=== PATIENT | female | born 1945 | race Caucasian/White ===

== ENCOUNTER → 2017-07-10 | Outpatient (CLI) | payer MEDICARE, OTHER ==
--- NOTE | 2017-07-10 12:08 | XR ---
EXAMINATION TYPE: XR lumbar spine 2 or 3V DATE OF EXAM: 07/10/2017 CLINICAL HISTORY: Low back pain TECHNIQUE: Frontal and lateral images of the lumbar spine are obtained. COMPARISON: Lumbar spine x-ray April 21, 2014 FINDINGS: Osseous structures are demineralized which is noted lower radiographic sensitivity There a re 5 lumbar type vertebral bodies identified. The lumbar spine shows straightened alignment without evidence of acute fracture or dislocation. Vertebral body heights are within normal limits. There is mild to moderate multilevel disc space narrowing with relative sparing of L3-L4 and L4-L5 levels. Pro minent multilevel facet arthropathy is redemonstrated in the mid to lower lumbar spine. There is mild multilevel anterior spurring with more moderate anterior spurring L5-S1 level. Vascular calcificatio n overlying abdominal aorta is redemonstrated. IMPRESSION: Demineralization and multilevel degenerative changes are seen as detailed above. Overall no significant change from prior.
== END | disposition home or self-care (01) ==
LOC: RADXRMAIN 11:48
PROVIDERS: ATTEND Internal Medicine Geriatric Medicine
DX: M48.061 Spinal stenosis, lumbar region without neurogenic claudication (principal); M46.86 Other specified inflammatory spondylopathies, lumbar region; M81.0 Age-related osteoporosis without current pathological fracture; M46.06 Spinal enthesopathy, lumbar region
CPT/HCPCS: 72100

== ENCOUNTER → 2017-08-20 | Outpatient (CLI) | payer MEDICARE ==
[2017-08-20 11:31] LABS: Blood Urea Nitrogen 18 mg/dL (7-17)
--- NOTE | 2017-08-20 12:30 | MR ---
EXAMINATION TYPE: MR lumbar spine wo/w con DATE OF EXAM: 08/20/2017 COMPARISON: Lumbar spine x-ray July 10, 2017 HISTORY: Polyneuropathy per order. Numbness in right -sided legs and knees per patient. TECHNIQUE: Multiplanar, multisequence images of the lumbar spine is performed without and with IV contrast, util izing 10 mL intravenous Gadavist FINDINGS: Sagittal images of the lumbar spine show vertebral body heights to remain satisfactory. The re is grade 1 retrolisthesis of L5 on S1. There is multilevel disc desiccation seen. There is moderat e to advanced disc space narrowing with vacuum disc phenomenon L5-S1 level. There is additional mild disc space narrowing L2-L3 level. Posterior disc herniations are seen at these levels on sagittal maribell ges. Increased signal posteriorly consistent with annular tear is noted L5-S1 level. The conus medull shahriar is noted slightly lower in position ending at superior L2 level. No abnormal signal is seen. No suspicious clumping of lumbosacral nerve roots is noted. Few enhancing roots are seen, nonspecific f inding. The bone marrow signal intensity is overall heterogeneous with diffuse small scattered valerie iomas. No suspicious enhancement is present. Axial images show the T12-L1 and L1-L2 levels to appear within normal limits. Axial images at L2-L3 level show mild broad disc bulge mildly effacing anterior thecal sac, bilateral neural foramina are patent. Axial images at L3-L4 level show mild to moderate facet degenerative changes and ligamentum flavum hy pertrophy and mild broad disc bulge with right lateral disc protrusion component. There is mild left and mild to moderate right-sided anterior inferior neural foraminal narrowing seen at this level. The re is mild effacement of the anterior thecal sac. Axial images at L4-L5 level show mild to moderate facet degenerative changes and ligament flavum hype rtrophy bilaterally with some effacement the posterior lateral thecal sac. There is mild broad disc b ulge seen. Bilateral neural foramina remain patent. Axial images at L5-S1 level show mild facet degenerative changes bilaterally. There is right paracent ral disc protrusion identified but spinal canal is preserved as there is prominence of epidural fat a t this level. There is mild to moderate bilateral neural foraminal narrowing at this level identified . No suspicious retroperitoneal findings are seen. There is 7 mm simple appearing cyst centrally in lef t kidney on axial image 23 noted. There is larger 1.0 cm simple appearing cyst posteriorly upper pole level right kidney identified axial image 27. IMPRESSION: Grade 1 retrolisthesis of L5 on S1. Multilevel degenerative changes seen mid to lower lum bar spine as detailed above. No suspicious enhancement noted.
== END | disposition home or self-care (01) ==
LOC: RADMRIMAIN 10:47
PROVIDERS: ATTEND Internal Medicine Geriatric Medicine
DX: M47.816 Spondylosis without myelopathy or radiculopathy, lumbar region (principal); M43.17 Spondylolisthesis, lumbosacral region; Z01.812 Encounter for preprocedural laboratory examination
CPT/HCPCS: 82565; 84520; 72158; 36415; A9581

== ENCOUNTER → 2020-02-04 | Outpatient (CLI) | payer MEDICARE ==
[~2020-02-04] MED LIST: IODINE/POTASS IOD (LUGOLS) BOTTLE TOPICAL ONE
--- NOTE | 2020-02-05 14:47 | NM ---
EXAMINATION TYPE: NM DatScan Brain SPECT DATE OF EXAM: 02/04/2020 COMPARISON: NONE HISTORY: Tremors TECHNIQUE: 10 drops of Lugol's solution was administered 1 hour prior to injection as a thyroid bloc kaitlin agent. After the administration of 4.37 mCi I-123 Ioflupane DaTscan. Images obtained 3.5 hours post injection. SPECT images of the brain were acquired with axial and coronal reconstructions. FINDINGS: There is normal uptake within the striata bilaterally. Uptake is symmetric. IMPRESSION: Normal ALONSO scan
== END | disposition home or self-care (01) ==
LOC: RADNMMAIN 11:06
PROVIDERS: ATTEND Psychiatry & Neurology Neurology
DX: G25.0 Essential tremor (principal)
CPT/HCPCS: 78803; A9584

== ENCOUNTER → 2021-07-03 | Outpatient (CLI) | payer MEDICARE ==
--- NOTE | 2021-07-03 15:59 | BD ---
EXAMINATION TYPE: Axial Bone Density DATE OF EXAM: 07/03/2021 COMPARISON: NONE CLINICAL HISTORY: Height: 5 FT 6 1/2 IN Weight: 141 FRAX RISK QUESTIONS: Alcohol (3 or more units per day): NO Family History (Parent hip fracture): NO Glucocorticoids (More than 3mos): NO (Ex: prednisone, prednisolone, methylprednisolone, dexamethasone, and hydrocortisone). History of Fracture in Adulthood: NO Secondary Osteoporosis: 1. Type 1 Diabetes: NO 2. Hyperthyroidism: NO 3. Menopause before 45: NO 4. Malnutrition: NO 5. Chronic liver disease: NO Rheumatoid Arthritis: NO Current Tobacco Use: NO RISK FACTORS HISTORY OF: Surgery to Spine/Hip(right/left)/Wrist (right/left): NO Family History of Osteoporosis: NO Active: YES Diet low in dairy products/other sources of calcium: NO Postmenopausal woman: YES Take estrogen and/or progesterone medications: NO Lost more than 2 inches in height since high school: NO Frequent falls: NO Poor Health: GOOD Hyperparathyroidism: NO Adrenal Insufficiency: NO MEDICATIONS: Additional Medications: METOPROLOL, CHOLESTEROL MEDS, GERD MEDS, MAGNESIUM, XANAX, BACLOFEN, ASPIRIN Additional History: EXAM MEASUREMENTS: Bone mineral densitometry was performed using the [employer] System. Bone mineral density as measured about the Lumbar spine is: ----- L1-L4(G/cm2): 1.539 T Score Values are as follows: ----- L2: 2.7 ----- L3: 3.8 ----- L4: 4.4 ----- L1-L4: 3.0 Bone mineral density has: INCREASED 4.3 % since study of: 2016 Bone mineral density about the R hip (g/cm2): 0.909 Bone mineral density about the L hip (g/cm2): 0.886 T Score values are as follows: -----R Neck: -0.9 -----L Neck: -1.1 -----R Total: -0.8 -----L Total: -0.7 Bone mineral density has: DECREASED -12.6 % since study of: 2016 IMPRESSION: Osteopenia (T Score between -2.5 and -1). There is slightly increased risk of fracture and the patient may be considered for treatment. Re-Screen 2-5 years. NOTE: T-SCORE=SD OF THE YOUNG ADULT MEAN.
--- NOTE | 2021-07-05 12:05 | MM ---
Reason for exam: screening (asymptomatic). Last mammogram was performed 5 years and 4 months ago. History: Patient is postmenopausal and is nulliparous. Physical Findings: A clinical breast exam by your physician is recommended on an annual basis and results should be correlated with mammographic findings. MG 3D Screening Mammo W/Cad Bilateral CC and MLO view(s) were taken. Prior study comparison: February 17, 2016, bilateral MG 3d screening mammo w/cad. April 08, 2013, bilateral digital screening mammo w/CAD. There are scattered fibroglandular densities. No significant changes when compared with prior studies. ASSESSMENT: Negative, BI-RAD 1 RECOMMENDATION: Routine screening mammogram of both breasts in 1 year.
== END | disposition home or self-care (01) ==
LOC: RADBDWWP 12:30
PROVIDERS: ATTEND Internal Medicine Geriatric Medicine
DX: Z12.31 Encounter for screening mammogram for malignant neoplasm of breast (principal); M85.852 Other specified disorders of bone density and structure, left thigh; Z78.0 Asymptomatic menopausal state
CPT/HCPCS: 77063; 77067; 77080

== ENCOUNTER 2023-09-10 15:20 | Inpatient (IN) | payer MEDICARE ==
--- NOTE | 2023-09-10 15:44 | ED ---
General Adult HPI - General Chief complaint: Neuro Symptoms/Deficit Stated complaint: Slurring Words Time Seen by Provider: 09/10/23 15:35 Source: patient, family Mode of arrival: ambulatory Limitations: no limitations - History of Present Illness Initial comments: Dictation was produced using [employer] dictation software. please excuse any gramm atical, word or spelling errors. Chief Complaint: 78-year-old female presents to the emergency department for strokelike symptoms History of Present Illness: Patient is an 78-year-old female she has past medical history of coronary artery disease, hypertension and osteoarthritis. 30 minutes prior to arrival was when she was last normal. She according to has been having sputtering symptoms of stroke. She was told by a nurse family friend that she had a TIA 3 to 4 days ago. reports that patient having word finding difficulties. Patient has a history of stroke. She had not seen a any director medical science regarding any neurologic issues. Denies any headache. No numbness ting or paresthesias to the arms or legs The ROS documented in this emergency department record has been reviewed and confirmed by me. Those systems with pertinent positive or negative responses have been documented in the HPI. All other systems are other negative and/or noncontributory. - Related Data Home Medications Medication Instructions Recorded Confirmed Ezetimibe/Simvastatin [Vytorin 1 tab PO DAILY 01/28/15 09/10/23 10-20 mg Tablet] ALPRAZolam [Xanax] 0.5 mg PO TID PRN 09/10/23 09/10/23 Baclofen [Lioresal] 5 mg PO TID PRN 09/10/23 09/10/23 Metoprolol Succinate [Metoprolol 12.5 mg PO HS 09/10/23 09/10/23 Succinate ER] Metoprolol Succinate [Metoprolol 25 mg PO DAILY 09/10/23 09/10/23 Succinate ER] Allergies Allergy/AdvReac Type Severity Reaction Status Date / Time hydromorphone HCl AdvReac Confusion Verified 09/10/23 16:14 [From Dilaudid] senna [From Senokot] AdvReac abdominal Verified 09/10/23 16:14 cramping sennosides [From Senokot] AdvReac abdominal Verified 09/10/23 16:14 cramping Review of Systems ROS Statement: Those systems with pertinent positive or pertinent negative responses have been documented in the HPI. ROS Other: All systems not noted in ROS Statement are negative. Past Medical History Past Medical History: Coronary Artery Disease (CAD), Hypertension, Osteoarthritis (OA) Additional Past Medical History / Comment(s): varicose veins,chronic neck pain, neuropathy, History of Any Multi-Drug Resistant Organisms: None Reported Past Surgical History: Cholecystectomy, Heart Catheterization With Stent Additional Past Surgical History / Comment(s): heat stents x 4 Past Anesthesia/Blood Transfusion Reactions: No Reported Reaction Date of Last Stent Placement:: 2002 Past Psychological History: Anxiety Past Alcohol Use History: Daily Past Drug Use History: None Reported - Past Family History Mother Family Medical History: Cancer (colon), Myocardial Infarction ([place]) Additional Family Medical History / Comment(s): colon at age 86 Father Additional Family Medical History / Comment(s): heart problems General Exam - General Exam Comments Initial Comments: PHYSICAL EXAM: General Impression: Alert and oriented x3, not in acute distress HEENT: Normocephalic atraumatic, extra-ocular movements intact, pupils equal and reactive to light bilaterally, mucous membranes moist. Cardiovascular: Heart regular rate and rhythm Chest: Able to complete full sentences, no retractions, no tachypnea Abdomen: abdomen soft, non-tender, non-distended, no organomegaly Musculoskeletal: Pulses present and equal in all extremities, no peripheral edema Motor: no focal deficits noted Neurological: CN II-XII grossly intact, no focal motor deficits noted, word finding difficulties, reported tingling to the right hand Skin: Intact with no visualized rashes Psych: Normal affect and mood Limitations: no limitations Course Vital Signs 09/10/23 09/10/23 09/10/23 15:32 15:41 15:44 Temperature 98.2 F 97.9 F Pulse Rate 72 105 H 75 Respiratory 16 20 15 Rate Blood Pressure 191/82 190/85 O2 Sat by Pulse 98 99 100 Oximetry 09/10/23 09/10/23 09/10/23 15:50 16:05 16:10 Temperature Pulse Rate 85 92 93 Respiratory 18 19 18 Rate Blood Pressure 197/92 O2 Sat by Pulse 100 100 98 Oximetry 09/10/23 09/10/23 09/10/23 16:20 16:30 16:34 Temperature Pulse Rate 85 85 82 Respiratory 20 21 20 Rate Blood Pressure 198/88 212/93 211/92 O2 Sat by Pulse 100 Oximetry 09/10/23 09/10/23 09/10/23 16:40 16:50 17:00 Temperature Pulse Rate 87 84 Respiratory 22 16 Rate Blood Pressure 211/106 211/91 211/91 O2 Sat by Pulse Oximetry 09/10/23 09/10/23 17:10 17:20 Temperature Pulse Rate 81 80 Respiratory 17 17 Rate Blood Pressure 212/97 205/82 O2 Sat by Pulse Oximetry - Reevaluation(s) Reevaluation #1: 09/10/23 15:44 Code stroke paged. Patient however has NIH score of 2. She is not a candidate for alteplase given low score and risk outweigh the benefits. EKG Findings - EKG Comments: EKG Findings:: My EKG interpretation: Ventricular rate 83, sinus rhythm, parable 243, cures 105, QTc 422. No TX prolongation, no QTC prolongation, no ST or T- wave changes noted. Overall, this EKG is unremarkable Medical Decision Making - Medical Decision Making Was pt. sent in by a medical professional or institution (, PA, GAS WELDING MACHINE OPERATOR, urgent care, hospital, or custodial...) When possible be specific @ -No Did you speak to anyone other than the patient for history (EMS, parent, family, police, friend...)? What history was obtained from this source @ -No Did you review nursing and triage notes (agree or disagree)? Why? @ -I reviewed and agree with nursing and triage notes Were old charts reviewed (outside hosp., previous admission, EMS record, old EKG, old radiological studies, urgent care reports/EKG's, custodial records)? Report findings @ -No old charts were reviewed Differential Diagnosis (chest pain, altered mental status, abdominal pain women, abdominal pain men, vaginal bleeding, musculoskeletal, weakness, fever, dyspnea, syncope, headache, dizziness, GI bleed, back pain, seizure, CVA, palpatations, mental health)? @ - Differential CVA: Ischemic stroke, hemorrhagic stroke, brain tumor, atypical migraine, Wernicke's encephalopathy, seizure, multiple sclerosis, meningitis, encephalitis, hypoglycemia, Guillain-Caldwell, electrolytes disturbance, myasthenia gravis.... This is not meant to be an all-inclusive list EKG interpreted by me (3pts min.). @ -See above X-rays interpreted by me (1pt min.). @ -Chest x-ray nonacute CT interpreted by me (1pt min.). @ -CT brain shows no bleed. CT angiography shows shows no large vessel occlusion U/S interpreted by me (1pt. min.). @ -None done What testing was considered but not performed or refused? (CT, X-rays, U/S, labs)? Why? @ -None What meds were considered but not given or refused? Why? @ -None Did you discuss the management of the patient with other professionals (professionals i.e. , PA, GAS WELDING MACHINE OPERATOR, lab, RT, psych nurse, high school social science teacher, reptile keeper, teacher, home lending officer, complex case manager)? Give summary @ -Case discussed with stroke neurologist who request that patient be managed medically. Was smoking cessation discussed for >3mins.? @ -No Was critical care preformed (if so, how long)? @ -Yes, 33 minutes Were there social determinants of health that impacted care today? How? (Homelessness, low income, unemployed, alcoholism, drug addiction, transportation, low edu. Level, literacy, decrease access to med. care, senior care, rehab)? @ -No Was there de-escalation of care discussed even if they declined (Discuss DNR or withdrawal of care, Hospice)? DNR status @ -No What co-morbidities impacted this encounter? (DM, HTN, Smoking, COPD, CAD, Cancer, CVA, ARF, Chemo, Hep., AIDS, mental health diagnosis, sleep apnea, morbid obesity)? @ -None Was patient admitted / discharged? Hospital course, mention meds given and route, prescriptions, significant lab abnormalities, going to OR and other pertinent info. @ -78-year-old female presents with strokelike symptoms . Last known normal was 30 minutes prior to arrival. Patient has low NIH score. Patient not a c andidate for thrombolytics due to risk outweigh the benefits. Vital signs shows findings within acceptable limits. Imaging studies negative. Labs negative. Patient given aspirin will be admitted with consultation to neurology. Undiagnosed new problem with uncertain prognosis? @ -No Drug Therapy requiring intensive monitoring for toxicity (Heparin, Nitro, Insulin, Cardizem)? @ -No Were any procedures done? @ -No Diagnosis/symptom? Acute, or Chronic, or Acute on Chronic? Uncomplicated (wi thout systemic symptoms) or Complicated (systemic symptoms)? @ -CVA Side effects of treatment? @ -No Exacerbation, Progression, or Severe Exacerbation? @ -No Poses a threat to life or bodily function? How? (Chest pain, [place], [place], pneumonia, PE, COPD, DKA, ARF, appy, cholecystitis, CVA, Diverticulitis, Homicidal, Suicidal, threat to staff... and all critical care pts) @ -yes - Lab Data Result diagrams: 09/10/23 15:52 09/10/23 15:52 Lab Results 09/10/23 09/10/23 09/10/23 Range/Units 15:52 15:52 15:52 WBC 8.8 (3.8-10.6) k/uL RBC 5.22 (3.80-5.40) m/uL Hgb 16.3 H (11.4-16.0) gm/dL Hct 48.9 H (34.0-46.0) % MCV 93.8 (80.0-100.0) fL MCH 31.2 (25.0-35.0) pg MCHC 33.3 (31.0-37.0) g/dL RDW 12.8 (11.5-15.5) % Plt Count 227 (150-450) k/uL MPV 7.0 Neutrophils % 76 % Lymphocytes % 16 % Monocytes % 5 % Eosinophils % 1 % Basophils % 1 % Neutrophils # 6.7 (1.3-7.7) k/uL Lymphocytes # 1.4 (1.0-4.8) k/uL Monocytes # 0.4 (0-1.0) k/uL Eosinophils # 0.1 (0-0.7) k/uL Basophils # 0.0 (0-0.2) k/uL PT 10.6 (10.0-12.5) sec INR 1.0 (<1.2) APTT 26.1 (22.0-30.0) sec Sodium 138 (137-145) mmol/L Potassium 6.0 H (3.5-5.1) mmol/L Chloride 103 (98-107) mmol/L Carbon Dioxide 27 (22-30) mmol/L Anion Gap 8 mmol/L BUN 12 (7-17) mg/dL Creatinine 0.66 (0.52-1.04) mg/dL Est GFR (CKD-EPI)AfAm >90 (>60 ml/min/1.73 sqM) Est GFR (CKD-EPI)NonAf 84 (>60 ml/min/1.73 sqM) Glucose 157 H (74-99) mg/dL Calcium 9.7 (8.4-10.2) mg/dL Total Bilirubin 1.5 H (0.2-1.3) mg/dL AST 51 H (14-36) U/L ALT 26 (4-34) U/L Alkaline Phosphatase 49 (38-126) U/L Creatine Kinase 103 (30-135) U/L Troponin I (0.000-0.034) ng/mL Total Protein 8.1 (6.3-8.2) g/dL Albumin 5.0 (3.5-5.0) g/dL 09/10/23 Range/Units 15:52 WBC (3.8-10.6) k/uL RBC (3.80-5.40) m/uL Hgb (11.4-16.0) gm/dL Hct (34.0-46.0) % MCV (80.0-100.0) fL MCH (25.0-35.0) pg MCHC (31.0-37.0) g/dL RDW (11.5-15.5) % Plt Count (150-450) k/uL MPV Neutrophils % % Lymphocytes % % Monocytes % % Eosinophils % % Basophils % % Neutrophils # (1.3-7.7) k/uL Lymphocytes # (1.0-4.8) k/uL Monocytes # (0-1.0) k/uL Eosinophils # (0-0.7) k/uL Basophils # (0-0.2) k/uL PT (10.0-12.5) sec INR (<1.2) APTT (22.0-30.0) sec Sodium (137-145) mmol/L Potassium (3.5-5.1) mmol/L Chloride (98-107) mmol/L Carbon Dioxide (22-30) mmol/L Anion Gap mmol/L BUN (7-17) mg/dL Creatinine (0.52-1.04) mg/dL Est GFR (CKD-EPI)AfAm (>60 ml/min/1.73 sqM) Est GFR (CKD-EPI)NonAf (>60 ml/min/1.73 sqM) Glucose (74-99) mg/dL Calcium (8.4-10.2) mg/dL Total Bilirubin (0.2-1.3) mg/dL AST (14-36) U/L ALT (4-34) U/L Alkaline Phosphatase (38-126) U/L Creatine Kinase (30-135) U/L Troponin I <0.012 (0.000-0.034) ng/mL Total Protein (6.3-8.2) g/dL Albumin (3.5-5.0) g/dL Disposition Clinical Impression: Cerebrovascular accident (CVA) Disposition: ADMITTED IP TO THIS HOSP Condition: Fair Referrals: Brian Taylor MD [Primary Care Provider] - 1-2 days Decision Time: 17:39
[2023-09-10 16:03] LABS: Basophils % (A) 1 %; Eosinophils # (A) 0.1 k/uL (0-0.7); Eosinophils % (A) 1 %; HCT 48.9 % (34.0-46.0); HGB 16.3 gm/dL (11.4-16.0); Lymphocytes # (A) 1.4 k/uL (1.0-4.8); Lymphocytes % (A) 16 %; MCH 31.2 pg (25.0-35.0); MCHC 33.3 g/dL (31.0-37.0); MCV 93.8 fL (80.0-100.0); Monocytes # (A) 0.4 k/uL (0-1.0); Monocytes % (A) 5 %; Neutrophils # (A) 6.7 k/uL (1.3-7.7); Neutrophils % (A) 76 %; Platelet Count 227 k/uL (150-450); RBC 5.22 m/uL (3.80-5.40); RDW 12.8 % (11.5-15.5); WBC 8.8 k/uL (3.8-10.6)
--- NOTE | 2023-09-10 16:17 | CT ---
EXAMINATION TYPE: CT brain wo con CT DLP: 1142.4 mGycm, Automated exposure control for dose reduction was used. DATE OF EXAM: 09/10/2023 4:05 PM COMPARISON: CT head 07/17/2015. CLINICAL INDICATION:Female, 78 years old with history of Neuro deficit, acute, stroke suspected, Code stroke. TECHNIQUE: Brain: Axial CT images of the brain were obtained with coronal and sagittal reformats created and rev iewed. Contrast used: None. Oral contrast used: None. FINDINGS: Extra-axial spaces: No abnormal extra-axial fluid collections. Ventricular system: Ventricles appear dilated in proportion to the degree of cerebral atrophy. Cerebral parenchyma: No increased attenuation to suggest acute intraparenchymal hemorrhage. The gra y-white matter interface appears maintained. Mild generalized brain atrophy. Scattered hypoattenuat ing areas are seen within the cerebral white matter, nonspecific but most often seen with chronic fabricio rovascular ischemic changes; mild in degree. Cerebellum: No acute abnormality. Mass effect: No evidence of mass effect or midline shift. Intracranial vasculature: Atherosclerotic calcifications of the larger arteries near the skull base. Soft tissues: No acute or concerning abnormality. Visualized orbits: Orbital contents appear grossly intact. Calvarium/osseous structures: No evidence of calvarial fracture. Paranasal sinuses and mastoid air cells: Mild scattered paranasal sinus mucosal thickening. Nasal sep jo ann deviation towards the right. Mastoid air cells are clear. MRI is more sensitive for detecting acute processes such as infarct, and may be considered if clinica lly warranted. IMPRESSION: 1. No CT evidence of an acute intracranial abnormality. 2. Mild atrophy and chronic microvascular ischemic white matter changes.
[2023-09-10 16:18] LABS: Partial Thromboplastin Time 26.1 sec (22.0-30.0); Prothrombin Time 10.6 sec (10.0-12.5)
[2023-09-10 16:43] LABS: ALT 26 U/L (4-34); AST 51 U/L (14-36); African American GFR (CKD) >90 (>60 ml/min/1.73 sqM); Alkaline Phosphatase 49 U/L (38-126); Anion Gap 8 mmol/L; Blood Urea Nitrogen 12 mg/dL (7-17); Calcium 9.7 mg/dL (8.4-10.2); Carbon Dioxide 27 mmol/L (22-30); Chloride 103 mmol/L (98-107); Creatine Kinase 103 U/L (30-135); Glucose 157 mg/dL (74-99); Non-African American GFR(CKD) 84 (>60 ml/min/1.73 sqM); Sodium 138 mmol/L (137-145); Total Bilirubin 1.5 mg/dL (0.2-1.3); Total Protein 8.1 g/dL (6.3-8.2)
--- NOTE | 2023-09-10 17:01 | CT ---
EXAMINATION TYPE: CT angio head neck DATE OF EXAM: 09/10/2023 4:27 PM COMPARISON: Same day CT head. CLINICAL INDICATION:Female, 78 years old with history of Neuro deficit, acute, stroke suspected; PHH, Code stroke TECHNIQUE: Axially acquired helical CT angiogram of the head and neck was obtained with contrast. Axi al images are supplemented with 3D reconstructions [facility] NASCET criteria used. Contrast used: 65 cc mL of Isovue 370 with IV Contrast, Oral contrast used: None. CT DLP: 382.6 mGycm, Automated exposure control for dose reduction was used. FINDINGS: CTA Neck: A 3 vessel aortic arch is shown. Moderate mostly calcified atherosclerotic disease along the aortic arch and proximal branch vessels with mild stenosis. Right carotid system: The common carotid is patent. Mild calcification in the proximal ICA. There is no hemodynamically significant diameter stenosis, dissection, nor pseudoaneurysm present. Left carotid system: The common carotid is patent. Moderate mixed atherosclerotic disease at the bifu rcation and proximal ICA, with less than 50% diameter stenosis. No evidence of dissection or pseudoan eurysm. Vertebral arteries: Mild atherosclerotic plaque at the origins of the vertebral arteries, without sug gestion of significant stenosis. The vertebrals are then otherwise patent to the skull base. The vertebral arteries are codominant. Other: Visualized neck soft tissues show no concerning abnormality. Cervical spine shows mild/moderat e degenerative changes without acute abnormality seen. Imaged portions of the lung apices show mild c hronic changes, no acute finding. CTA Head: There are some calcifications of the cavernous portions of the ICAs without critical stenosis. Mild d iffuse irregularity of the intracranial vasculature likely from atherosclerosis. Supraclinoid ICAs, bifurcations, ACAs, MCAs appear patent. Anterior communicating artery is not defin itely seen. The intracranial vertebral arteries enhance normally. Basilar artery is patent, and essentially termi nates as the right POT PUSHER. Small patent posterior communicating artery on the right. There appears to be origin of the left POT PUSHER, supplied from the anterior circulation. No intracranial large vessel occlusion, hemodynamically significant stenosis, aneurysm, dissection, o r arteriovenous malformation is shown. The dural venous sinuses appear grossly patent without evidence of thrombosis. Other: Please refer to same-day CT head report.. IMPRESSION: CTA neck: 1. No dissection or pseudoaneurysm detected in the carotid or vertebral arteries in the neck. 2. Atherosclerotic disease is present, with less than 50% diameter stenosis in the proximal left ICA . CTA head: 1. No intracranial large vessel occlusion, significant stenosis, or sizable aneurysm detected in the limits of CTA.
--- NOTE | 2023-09-10 17:02 | XR ---
EXAMINATION TYPE: XR chest 2V DATE OF EXAM: 09/10/2023 COMPARISON: 07/17/2015 HISTORY: 78-year-old female confusion, altered mental status TECHNIQUE: AP and lateral views FINDINGS: Heart upper limits of normal in size. Aorta and pulmonary vasculature within normal limits. No consol idation or pleural effusion. IMPRESSION: Borderline heart size. No acute process seen.
[2023-09-10] MEDS ORDERED: NALOXONE 0.4 MG/ML 1 ML VIAL IV PRN (17:35)
[2023-09-10] MEDS: ASPIRIN 81 MG PO STA (17:55)
[2023-09-10] MEDS: SODIUM CHLORIDE 0.9% 1,000 ML IV SCH (17:56)
[2023-09-10] MEDS ORDERED: ENALAPRILAT 1.25 MG/ML 1 ML VIAL IVP PRN (18:52)
[2023-09-10] MEDS: CLOPIDOGREL 75 MG TAB PO SCH (21:05)
[2023-09-10] MEDS: METOPROLOL SUCCINATE (ER) 25 MG TAB.ER.24H PO SCH (21:05)
[2023-09-10] MEDS: ALPRAZolam 0.5 MG TAB PO PRN (23:32)
[2023-09-10] MEDS: hydrALAZINE HCL 25 MG TAB PO PRN (23:33)
[2023-09-10] MEDS: BACLOFEN 10 MG TAB PO PRN (23:34)
--- NOTE | 2023-09-11 04:28 | P.HPIM ---
History of Present Illness H&P Date: 09/10/23 Chief Complaint: CVA/TIA, atherosclerotic heart disease, hypertension, hyper lipidemia and ch HISTORY OF PRESENT ILLNESS: 78-year-old female one of my office patient well-known for the last 20 years with history of coronary artery disease, hypertension, osteoarthritis, chronic neuropathy, history of mild depression and anxiety attacks. Patient was in the office last 48 hours for follow-up has been feeling well she is worried about her blood sugar is getting higher than expected, also has been having worsening problems with incontinence and polyuria with significant night sweats. She developed yesterday to have severe expression aphasia and able to express herself and using Sald word at this time and stuttering quite a bit. Her symptoms almost lasted for over an hour, with noticeable for the hospital to see frustration of her able to express himself. Afterward symptoms disappear and almost back to normal except continue to have slight lightheadedness and dizziness mild abnormal balance and gait. We called office today with a concern of what happened and was instructed to go to the emergency department for at least testing. She was seen and evaluated at the emergency department her blood pressure was quite bit high running in the 1 90-200 not coming down magnesium. Also it has been fluctuated slightly but slightly better As well. Her laboratory values showed mild hyperglycemia with hyperkalemia with slight polycythemia as well. CAT scan of the brain no acute intracranial abnormality with mild atrophy and small vessel disease. CT angiogram no dissection or aneurysm without treatment of carotid or vertebral artery. Has more atherosclerotic disease is present less than 50 percentile diameter stenosis of the proximal left internal carotid artery. Patient was evaluated for stroke. He passed the time to be able to use tPA, advised to run an MRI of the brain, start aggressive management for blood pressure along with cholesterol. The patient will be on dual antiplatelet agent along with aspirin. Will consult neurology and arrangement for MRI of the brain will be done. REVIEW OF SYSTEMS: CONSTITUTIONAL: Well-developed no acute respiratory distress. EYES: No icterus sclerae, no conjunctivitis. EARS, NOSE, MOUTH, THROAT, and FACE: No sore throat, lymphadenopathy, carotid bruits or deformity. RESPIRATORY: Slight shortness of breath no cough or wheezes. CARDIOVASCULAR: No CP, Palpitation, PND, Orthopnea, or angina. GASTROINTESTINAL: No Abd pain, Nausea or vomiting, no Diarrhea or constipation, No GI Bleed, no distention or masses. GENITOURINARY: Positive kidney stone INTEGUMENT/BREAST: Negative for any muscular injury with mild osteoarthritis.. HEMATOLOGIC/LYMPHATIC: Negative for bleed or purpura. MUSCULOSKELTAL: Mild muscle and joint pain. NEURLOGICAL: No seizure activity or syncope no blurred vision positive slight dizziness with normal balance and gait still have slight weakness in the right side compared to the left side. BEHAVIORAL/PSYCH: Negative. ENDOCRINE: Negative. PHYSICAL EXAMINATION: General Appearance: Alert, cooperative, no distress, appears stated age. Neck HEENT: Supple, no lymphadenopathy, no thyroid enlargement, no carotid bruits. Lungs: Clear to auscultation without crackles or wheezes no rhonchi, no defor mity. Chest Wall: Chest wall normal expansion with deep inspiration no tenderness and no deformity was found on exam, no costochondral pain or discomfort. Heart: Regular rate and rhythm, S1, S2 normal, no murmur, rub or gallop. Back: Symmetric, no curvature, ROM normal, no CVA tenderness. Abdomen: Soft, non-tender, bowel sounds active all four quadrants, no masses, no organomegaly. Extremities: Extremities normal, atraumatic, no cyanosis or edema. Pulses: 2+ and symmetric. Skin: Skin color, texture, tugor normal, no rashes or lesions. Neurologic: Alert oriented x3 cranial nerves II through XII intact, slight weakness in the right side especially the upper extremity compared to the lower extremity, slight abnormal balance and gait currently she is not steady on her feet. ASSESSMENT AND PLAN: _TIA/CVA: Symptoms lasted for over an hour had reversed still have slight residual at this point, patient was hospitalized started on Plavix higher dose of statin along with baby aspirin will consult neurology probably going for an MRI of the brain. _Atherosclerotic heart disease: Postangioplasty and stent placement years ago has not had any further cardiac testing in long time Please remain on metoprolol and Vytorin duloxetine ARB early. Blood pressure has been high will probably add enalapril IV and furthermore we will try probably keep patient on oral lisinopril. _Hypertension: Become slightly with urgent and not controlled add enalapril 2.5 mg IV every 6 hours for systolic above 160 also will add hydralazine 25 mg 4 times a day for the same parameters for now. _Hyperlipidemia: Currently on Vytorin 10/20 mg with target for LDL below 70 might go higher on the simvastatin part of the Vytorin. _Chronic neuropathy: With major side effect and complication related to pregabalin and gabapentin patient remain off currently could not tolerate duloxetine or Elavil. _Chronic pelvic pain syndrome: With worsening interstitial cystitis along with worsening spasm and pelvic pain repeatedly. Has been on physical therapy previously still on baclofen Tylenol and occasional bladder control medication. Mild polycythemia: Not a clear etiology at this point repeat CBC tomorrow if still elevated further arrangement for sleep study will be done. Mild hyperkalemia: Not clear whether this is hemolyzed or not repeat again CMP if needed will treat with potassium. Hyperglycemia: Blood sugar 157, patient never been diagnosed with diabetes A1c returned at lab in the morning and will continue Accu-Chek while she is in the hospital. GI prophylaxis: Patient be on Pepcid 20 mg daily. DVT prophylaxis: Early mobilization knee-high BOB hose. CODE STATUS: Full code. Admit patient to the hospital for more than 2 night stay. Past Medical History Past Medical History: Coronary Artery Disease (CAD), Hypertension, Osteoarthritis (OA) Additional Past Medical History / Comment(s): varicose veins,chronic neck pain, neuropathy, History of Any Multi-Drug Resistant Organisms: None Reported Past Surgical History: Cholecystectomy, Heart Catheterization With Stent Additional Past Surgical History / Comment(s): heat stents x 4 Past Anesthesia/Blood Transfusion Reactions: No Reported Reaction Date of Last Stent Placement:: 2002 Past Psychological History: Anxiety Past Alcohol Use History: Daily Past Drug Use History: None Reported - Past Family History Mother Family Medical History: Cancer (colon), Myocardial Infarction ([place]) Additional Family Medical History / Comment(s): colon at age 86 Father Additional Family Medical History / Comment(s): heart problems Medications and Allergies Home Medications Medication Instructions Recorded Confirmed Type Ezetimibe/Simvastatin [Vytorin 1 tab PO DAILY 01/28/15 09/10/23 History 10-20 mg Tablet] ALPRAZolam [Xanax] 0.5 mg PO TID PRN 09/10/23 09/10/23 History Baclofen [Lioresal] 5 mg PO TID PRN 09/10/23 09/10/23 History Metoprolol Succinate [Metoprolol 12.5 mg PO HS 09/10/23 09/10/23 History Succinate ER] Metoprolol Succinate [Metoprolol 25 mg PO DAILY 09/10/23 09/10/23 History Succinate ER] Allergies Allergy/AdvReac Type Severity Reaction Status Date / Time hydromorphone HCl AdvReac Confusion Verified 09/10/23 16:14 [From Dilaudid] senna [From Senokot] AdvReac abdominal Verified 09/10/23 16:14 cramping sennosides [From Senokot] AdvReac abdominal Verified 09/10/23 16:14 cramping Physical Exam Vitals: Vital Signs Temp Pulse Resp BP Pulse Ox 09/10/23 18:00 71 17 192/89 97 09/10/23 17:20 80 17 205/82 09/10/23 17:10 81 17 212/97 09/10/23 17:00 84 16 211/91 09/10/23 16:50 87 22 211/91 09/10/23 16:40 211/106 09/10/23 16:34 82 20 211/92 100 09/10/23 16:30 85 21 212/93 09/10/23 16:20 85 20 198/88 09/10/23 16:10 93 18 197/92 98 09/10/23 16:05 92 19 100 09/10/23 15:50 85 18 100 09/10/23 15:44 75 15 100 09/10/23 15:41 97.9 F 105 H 20 190/85 99 09/10/23 15:32 98.2 F 72 16 191/82 98 Intake and Output 09/10/23 09/10/23 09/10/23 06:59 14:59 22:59 Other: Weight 76 kg Results CBC & Chem 7: 09/10/23 15:52 09/10/23 15:52 Labs: Abnormal Lab Results - Last 24 Hours (Table) 09/10/23 09/10/23 Range/Units 15:52 15:52 Hgb 16.3 H (11.4-16.0) gm/dL Hct 48.9 H (34.0-46.0) % Potassium 6.0 H (3.5-5.1) mmol/L Glucose 157 H (74-99) mg/dL Total Bilirubin 1.5 H (0.2-1.3) mg/dL AST 51 H (14-36) U/L
[2023-09-11 04:53] LABS: Basophils # (A) 0.1 k/uL (0-0.2); Basophils % (A) 1 %; Eosinophils # (A) 0.1 k/uL (0-0.7); Eosinophils % (A) 1 %; HCT 43.1 % (34.0-46.0); HGB 14.3 gm/dL (11.4-16.0); Lymphocytes # (A) 1.7 k/uL (1.0-4.8); Lymphocytes % (A) 21 %; MCHC 33.3 g/dL (31.0-37.0); MCV 93.1 fL (80.0-100.0); Mean Platelet Volume 7.2; Monocytes # (A) 0.6 k/uL (0-1.0); Monocytes % (A) 7 %; Neutrophils # (A) 5.6 k/uL (1.3-7.7); Neutrophils % (A) 68 %; Platelet Count 205 k/uL (150-450); RBC 4.63 m/uL (3.80-5.40); RDW 12.8 % (11.5-15.5); WBC 8.2 k/uL (3.8-10.6)
[2023-09-11 05:06] LABS: ALT 18 U/L (4-34); AST 24 U/L (14-36); African American GFR (CKD) >90 (>60 ml/min/1.73 sqM); Albumin 3.6 g/dL (3.5-5.0); Alkaline Phosphatase 46 U/L (38-126); Anion Gap 3 mmol/L; Blood Urea Nitrogen 13 mg/dL (7-17); Calcium 8.6 mg/dL (8.4-10.2); Carbon Dioxide 27 mmol/L (22-30); Chloride 107 mmol/L (98-107); Glucose 99 mg/dL (74-99); Non-African American GFR(CKD) 85 (>60 ml/min/1.73 sqM); Potassium 3.6 mmol/L (3.5-5.1); Sodium 137 mmol/L (137-145); Total Bilirubin 0.8 mg/dL (0.2-1.3); Total Protein 5.9 g/dL (6.3-8.2)
[2023-09-11 06:08] LABS: Glucose,Whole Blood 89 mg/dL (70-110)
[2023-09-11] MEDS: PANTOPRAZOLE 40 MG TABLET PO SCH (06:15)
[2023-09-11] MEDS: EZETIMIBE 10 MG TAB PO SCH (09:35)
[2023-09-11] MEDS: LOSARTAN 50 MG TAB PO SCH (09:35)
[2023-09-11] MEDS: METOPROLOL SUCCINATE (ER) 25 MG TAB.ER.24H PO SCH (09:35)
[2023-09-11] MEDS: ATORVASTATIN 10 MG TAB PO SCH (09:35)
[2023-09-11 12:09] LABS: Glucose,Whole Blood 98 mg/dL (70-110)
--- NOTE | 2023-09-11 12:15 | CA ---
Transthoracic Echo Report Name: Diana Leonardo Age: 78 Gender: F : 1945 Exam Date: 09/11/2023 10:02 Exam Location: [facility] Ht (in): 66 Wt (lb): 167 Ordering Physician: Brain Taylor MD Attending/Referring Phys: Installation Superintendent Emilie Ch RDCS Procedure CPT: Indications: lvfunction Cardiac Hx: Technical Quality: Fair Contrast 1: Total Dose (mL): Contrast 2: Total Dose (mL): MEASUREMENTS (Male / Female) Normal Values 2D ECHO LV Diastolic Diameter PLAX 4.4 cm 4.2 - 5.9 / 3.9 - 5.3 cm LV Systolic Diameter PLAX 2.8 cm IVS Diastolic Thickness 1.2 cm 0.6 - 1.0 / 0.6 - 0.9 cm LVPW Diastolic Thickness 0.8 cm 0.6 - 1.0 / 0.6 - 0.9 cm LV Relative Wall Thickness 0.4 Aortic Root Diameter 2.9 cm LA Systolic Diameter LX 4.7 cm 3.0 - 4.0 / 2.7 - 3.8 cm LA Volume 67.6 cm??? 18 - 58 / 22 - 52 cm??? LA Volume Index 35.7 cm???/m??? 16 - 28 cm???/m??? DOPPLER AV Peak Velocity 92.6 cm/s AV Peak Gradient 3.4 mmHg AV Mean Velocity 70.3 cm/s AV Mean Gradient 2.1 mmHg AV Velocity Time Integral 23.0 cm LVOT Peak Velocity 63.5 cm/s LVOT Peak Gradient 1.6 mmHg LVOT Velocity Time Integral 18.2 cm MV Area PHT 3.7 cm??? Mitral E Point Velocity 72.9 cm/s Mitral A Point Velocity 68.6 cm/s Mitral E to A Ratio 1.1 MV Deceleration Time 206.3 ms PV Peak Velocity 75.9 cm/s PV Peak Gradient 2.3 mmHg FINDINGS Left Ventricle Normal LV size and systolic function. LVEF estimated at 55-60%. Mild concentric LVH Right Ventricle Right ventricle not well visualized. Right Atrium Right atrium not well visualized. Left Atrium Mild left atrial dilatation dilatation Mitral Valve No mitral regurgitation. Aortic Valve Trileaflet aortic valve. Tricuspid Valve Trace tricuspid regurgitation. Pulmonic Valve Trace pulmonic regurgitation. Pericardium Normal pericardium. Aorta Normal size aortic root and proximal ascending aorta. CONCLUSIONS Limited and poor quality echo LVEF 55-60%, mild concentric LVH. No obvious regional wall motion abnormality RV was not assessed on his echo Mild left atrial dilatation dilatation No significant valvular dysfunction Previewed by: Dr Johnnie Wheeler (Electronically Signed) Final Date: 11 September 2023 12:15
[2023-09-11] MEDS ORDERED: ASPIRIN 81 MG PO SCH (14:00)
--- NOTE | 2023-09-11 14:52 | P.CNNES ---
History of Present Illness Consult date: 09/11/23 Requesting physician: Keith Cantu Reason for Consult: Code stroke History of Present Illness: Patient is a 78-year-old right-handed female with history of hypertension came to the hospital yesterday at 3:20 PM for strokelike symptoms. Patient states that she went for a physical at her PCP office on Saturday, 2 days ago and everything went well with blood pressure 128/64. Later that day on Saturday, at 2 PM she was doing crossword puzzle when suddenly her thoughts jumbled up and she could not talk for 15 minutes. When she tried to talk, different words would come out which were out of context. The words were okay although she was slightly slurring. No other stroke symptoms like facial droop, visual disturba nce, numbness tingling focal weakness or headache. The symptoms lasted for 15 minutes and then resolved. She did not seek medical attention afterwards but the following day which is Saturday, yesterday, while she was laying in the bed, trying to remember some words but could not remember. She spoke to her friend and her and decided to come to the ER for further evaluation. At present patient has no symptoms. Vital signs on arrival blood pressure 191/82, pulse 72 temperature 98.2. Blood test shows normal CBC, PT PTT, normal electrolytes, renal functions, AST is 51, ALT 26, troponin negative. CT head revealed no evidence of acute intracranial abnormality. Mild atrophy and chronic microvascular ischemic white matter changes. EKG shows sinus rhythm with first-degree AV block with occasional supraventricular premature complexes. Chest x-ray is borderline heart size with no acute process. Home medications include Vytorin 10/20 mg, Xanax 0.5 mg 3 times daily as needed, metoprolol 25 mg daily in the morning and 12.5 mg at bedtime, baclofen 5 mg 3 times daily as needed. Patient used to take aspirin 81 mg daily, but she was told to stop taking aspirin and she is off aspirin for 3 to 4 years. Patient has hypertension, hyperlipidemia, denies diabetes. She has never smoked, drinks a glass of vodka and a glass of red wine every night. Patient states that she has neck issues at C2 level for which she see a chiropractor. She also has history of neuropathy in the legs for which she used to be on Lyrica but has been stopped 5 years ago. Review of Systems Constitutional: Denies chills, Denies fever Eyes: denies blurred vision, denies diplopia, denies pain Ears: deny: decreased hearing, ear discharge Ears, nose, mouth and throat: Denies headache, Denies sore throat, Denies vertigo Cardiovascular: Reports lightheadedness, Denies chest pain, Denies shortness of breath Respiratory: Denies cough, Denies excessive sputum (Sometimes gets mucus.) Gastrointestinal: Reports nausea (In am), Denies abdominal pain, Denies diarrhea, Denies vomiting Genitourinary: Denies dysuria, Denies hematuria, Denies mixed incontinence Musculoskeletal: Reports low back pain, Reports neck pain Integumentary: Denies pruritus, Denies rash Neurological: Reports as per HPI Psychiatric: Reports anxiety, Reports depression Hematologic/Lymphatic: Reports easy bruising, Denies easy bleeding Past Medical History Past Medical History: Coronary Artery Disease (CAD), Hypertension, Osteoarthritis (OA) Additional Past Medical History / Comment(s): varicose veins,chronic neck pain, neuropathy, History of Any Multi-Drug Resistant Organisms: None Reported Past Surgical History: Cholecystectomy, Heart Catheterization With Stent Additional Past Surgical History / Comment(s): heat stents x 4 Past Anesthesia/Blood Transfusion Reactions: No Reported Reaction Date of Last Stent Placement:: 2002 Past Psychological History: Anxiety Past Alcohol Use History: Daily Past Drug Use History: None Reported - Past Family History Mother Family Medical History: Cancer (colon), Myocardial Infarction ([place]) Additional Family Medical History / Comment(s): colon at age 86 Father Additional Family Medical History / Comment(s): heart problems Medications and Allergies Home Medications Medication Instructions Recorded Confirmed Type Ezetimibe/Simvastatin [Vytorin 1 tab PO DAILY 01/28/15 09/10/23 History 10-20 mg Tablet] ALPRAZolam [Xanax] 0.5 mg PO TID PRN 09/10/23 09/10/23 History Baclofen [Lioresal] 5 mg PO TID PRN 09/10/23 09/10/23 History Metoprolol Succinate [Metoprolol 12.5 mg PO HS 09/10/23 09/10/23 History Succinate ER] Metoprolol Succinate [Metoprolol 25 mg PO DAILY 09/10/23 09/10/23 History Succinate ER] Aspirin 81 mg PO DAILY tab 09/11/23 Rx Clopidogrel [Plavix] 75 mg PO DAILY #30 tab 09/11/23 Rx Losartan [Cozaar] 50 mg PO DAILY #30 tab 09/11/23 Rx Pantoprazole [Protonix] 40 mg PO AC-BRKFST #30 tab 09/11/23 Rx hydrALAZINE HCL [Apresoline] 25 mg PO QID PRN #60 tab 09/11/23 Rx Allergies Allergy/AdvReac Type Severity Reaction Status Date / Time hydromorphone HCl AdvReac Confusion Verified 09/10/23 16:14 [From Dilaudid] senna [From Senokot] AdvReac abdominal Verified 09/10/23 16:14 cramping sennosides [From Senokot] AdvReac abdominal Verified 09/10/23 16:14 cramping Physical Examination - Vital Signs Vital Signs: Vital Signs Temp Pulse Pulse Pulse Resp BP BP 09/11/23 09:30 98.1 F 64 16 165/64 09/11/23 08:00 64 16 09/11/23 04:00 56 L 18 148/66 09/11/23 00:31 145/67 09/11/23 00:00 66 18 192/80 09/10/23 21:05 98.4 F 73 16 164/74 09/10/23 19:40 68 14 175/77 09/10/23 19:30 67 15 189/73 09/10/23 19:20 69 20 189/73 09/10/23 19:10 71 17 187/70 09/10/23 19:00 70 20 193/82 09/10/23 18:50 79 18 193/82 09/10/23 18:40 71 21 190/80 09/10/23 18:30 71 20 188/76 09/10/23 18:20 75 19 188/76 09/10/23 18:10 75 19 194/82 09/10/23 18:00 75 17 184/78 09/10/23 17:50 78 17 184/78 09/10/23 17:40 76 12 200/81 09/10/23 17:30 78 19 205/82 09/10/23 17:20 80 17 205/82 09/10/23 17:10 81 17 212/97 09/10/23 17:00 84 16 211/91 09/10/23 16:50 87 22 211/91 09/10/23 16:40 211/106 09/10/23 16:34 82 20 211/92 09/10/23 16:30 85 21 212/93 09/10/23 16:20 85 20 198/88 09/10/23 16:10 93 18 197/92 09/10/23 16:05 92 19 09/10/23 15:50 85 18 09/10/23 15:44 75 15 09/10/23 15:41 97.9 F 105 H 20 190/85 09/10/23 15:32 98.2 F 72 16 191/82 Pulse Ox 09/11/23 09:30 98 09/11/23 08:00 09/11/23 04:00 97 09/11/23 00:31 09/11/23 00:00 98 09/10/23 21:05 98 09/10/23 19:40 09/10/23 19:30 09/10/23 19:20 09/10/23 19:10 09/10/23 19:00 09/10/23 18:50 09/10/23 18:40 09/10/23 18:30 09/10/23 18:20 09/10/23 18:10 09/10/23 18:00 97 09/10/23 17:50 09/10/23 17:40 09/10/23 17:30 09/10/23 17:20 09/10/23 17:10 09/10/23 17:00 09/10/23 16:50 09/10/23 16:40 09/10/23 16:34 100 09/10/23 16:30 09/10/23 16:20 09/10/23 16:10 98 09/10/23 16:05 100 09/10/23 15:50 100 09/10/23 15:44 100 09/10/23 15:41 99 09/10/23 15:32 98 Intake and Output 09/10/23 09/11/23 09/11/23 22:59 06:59 14:59 Intake Total 118 Balance 118 Intake: Oral 118 Other: Weight 76 kg Patient is an elderly female, very pleasant, in no acute distress. Patient is alert awake oriented to time place and person. Speech and language functions are normal. Patient can name and repeat very well. No aphasia or dysarthria. Attention, concentration and fund of knowledge is adequate. On cranial nerve examination, pupils are equal, round and reacting to light, visual kraft are full on confrontation, with no neglect on double simultaneous stimulation. Extraocular muscles are intact with no nystagmus. Face is symmetric, tongue protrudes to the midline. Palatal elevation and sensation normal, hearing and shoulder shrug normal, facial sensation normal. On muscle strength testing, there is no pronator drift and the strength is normal in arms and legs distally and proximally, except right deltoid which is weak, which patient claims is from the statins and the right shoulder gets better and weak off and on. When she stops statins, the right shoulder weakness goes away. Deep tendon reflexes are (right/left) biceps 1+/1+, brachioradialis 1+/1+, knee 0/1, ankle 1/1 and plantars are downgoing bilaterally. Patient had right knee arthroplasty. Sensory to touch is equal with no neglect on double simultaneous stimulation. Cerebellar function showed no ataxia for [id number] testing. No dysdiadochokinesia. No ataxia for [id number] testing on either side. Tone and bulk of muscles normal. Gait deferred.. On general examination, there is no carotid bruit or murmur, S1-S2 audible. Chest is clear on consultation. Abdomen is soft nontender. No organomegaly, bowel sounds present. Peripheral pulses are present. No peripheral edema. Results - Laboratory Findings CBC and BMP: 09/11/23 04:42 09/11/23 04:42 Abnormal Lab Findings: Abnormal Labs 09/10/23 09/10/23 09/11/23 15:52 15:52 04:42 Hgb 16.3 H Hct 48.9 H Potassium 6.0 H Glucose 157 H Total Bilirubin 1.5 H AST 51 H Total Protein 5.9 L Assessment and Plan Assessment: * Probable transient cerebral ischemia, manifesting with transient fluent expressive aphasia, that lasted for about 10 to 15 minutes and went away. Current NIH stroke scale is 0. Patient not a candidate for tPA. * Hypertension * Hyperlipidemia * Whitecoat syndrome * PTSD * Previous history of neuropathy Plan: MRI of the brain without contrast has been initiated by PCP, will review the results. 2-D echo with bubble study to rule out PFO CTA head and neck showed: Showed no dissection or pseudoaneurysm in the carotid or vertebral arteries in the neck. Atherosclerotic disease is present with less than 50% diameter stenosis in the proximal left ICA. No intracranial large vessel occlusion, significant stenosis or sizable aneurysm detected in the limits of CTA. Fasting a.m. lipid panel. Continue Vytorin. Hemoglobin A1c 5.4 Optimize control of blood pressure to target <130/80 Patient was not taking any antiplatelet medication. Patient to be placed on dual antiplatelet medication including aspirin 81 mg, Plavix 75 mg for 21 days. There after May stop Plavix and continue aspirin indefinitely. Telemetry monitoring rule out any arrhythmia PT, OT, speech therapy DVT prophylaxis: Heparin 5000 units subcu every 8 hours Neurology will continue to follow. Thank you for the consult. Addendum: 2D echo revealed normal left ventricular ejection fraction with EF 55 to 60%, mild concentric LVH with no obvious regional wall motion abnormality. Mild left atrial dilation. No significant valvular dysfunction. MRI of the brain was completed, and on my review appears normal with no evidence of an acute stroke. Some small vessel disease. Neurologically clear for discharge on above recommendation.
[2023-09-11 16:15] LABS: Glucose,Whole Blood 91 mg/dL (70-110)
--- NOTE | 2023-09-11 17:00 | MR ---
EXAMINATION TYPE: MR brain wo/w con DATE OF EXAM: 09/11/2023 2:28 PM CLINICAL INDICATION:Female, 78 years old with history of stroke; [facility], COMPARISON: 09/10/2023 TECHNIQUE: Multi planar, multi sequence imaging was performed through the brain including: T1, T2, In version recovery, susceptibility weighted imaging and gradient echo imaging and Diffusion weighted im aging. The patient was then given intravenous contrast and multi planar, T1 fat-saturation images wer e obtained. IV Contrast: cc 7.5 cc Gadavist. FINDINGS: The lay-white junctions, ventricular system, basal cisterns appear unremarkable. Diffusion-weighted imaging shows no evidence of restricted diffusion to suggest acute/subacute infarct. Intracranial ar terial flow voids are maintained. Midline structures show no abnormality. Scattered foci of high T2 s ignal intensity are seen within the periventricular white matter. The susceptibility weighted images do not reveal any evidence for micro-hemorrhage. After administration of gadolinium, no abnormal enha ncement is seen. The bone marrow signal is within normal limits. Paranasal sinuses and mastoid air cells: No significant paranasal sinus disease. Visualized orbits: Orbital contents are intact. IMPRESSION: 1. No evidence of intracranial mass, acute/subacute infarct, or abnormal enhancement. 2. Nonspecific white matter changes, likely related to small vessel ischemic disease.
[2023-09-11 19:01] VITALS: BP 167/67; PULSE 55; RESP 18; TEMP 98.3
--- NOTE | 2023-09-12 06:09 | P.DS ---
Providers Date of admission: 09/10/23 17:35 Attending physician: Brian Taylor Consults: 09/10/23 17:06 Consult Physician Routine Consulting Provider: Sherwin Ambrose Consult Reason/Comments: code stroke Do you want consulting provider notified?: Yes Primary care physician: Brian Taylor [facility] Course: HISTORY OF PRESENT ILLNESS: 78-year-old female one of my office patient well-known for the last 20 years with history of coronary artery disease, hypertension, osteoarthritis, chronic neuropathy, history of mild depression and anxiety attacks. Patient was in the office last 48 hours for follow-up has been feeling well she is worried about her blood sugar is getting higher than expected, also has been having worsening problems with incontinence and polyuria with significant night sweats. She developed yesterday to have severe expression aphasia and able to express herself and using Sald word at this time and stuttering quite a bit. Her symptoms almost lasted for over an hour, with noticeable for the hospital to see frustration of her able to express himself. Afterward symptoms disappear and almost back to normal except continue to have slight lightheadedness and dizziness mild abnormal balance and gait. We called office today with a concern of what happened and was instructed to go to the emergency department for at least testing. She was seen and evaluated at the emergency department her blood pressure was quite bit high running in the 1 90-200 not coming down magnesium. Also it has been fluctuated slightly but slightly better As well. Her laboratory values showed mild hyperglycemia with hyperkalemia with slight polycythemia as well. CAT scan of the brain no acute intracranial abnormality with mild atrophy and small vessel disease. CT angiogram no dissection or aneurysm without treatment of carotid or vertebral artery. Has more atherosclerotic disease is present less than 50 percentile diameter stenosis of the proximal left internal carotid artery. Patient was evaluated for stroke. He passed the time to be able to use tPA, advised to run an MRI of the brain, start aggressive management for blood pressure along with cholesterol. The patient will be on dual antiplatelet agent along with aspirin. Will consult neurology and arrangement for MRI of the brain will be done. REVIEW OF SYSTEMS: CONSTITUTIONAL: Well-developed no acute respiratory distress. EYES: No icterus sclerae, no conjunctivitis. EARS, NOSE, MOUTH, THROAT, and FACE: No sore throat, lymphadenopathy, carotid bruits or deformity. RESPIRATORY: Slight shortness of breath no cough or wheezes. CARDIOVASCULAR: No CP, Palpitation, PND, Orthopnea, or angina. GASTROINTESTINAL: No Abd pain, Nausea or vomiting, no Diarrhea or constipation, No GI Bleed, no distention or masses. GENITOURINARY: Positive kidney stone INTEGUMENT/BREAST: Negative for any muscular injury with mild osteoarthritis.. HEMATOLOGIC/LYMPHATIC: Negative for bleed or purpura. MUSCULOSKELTAL: Mild muscle and joint pain. NEURLOGICAL: No seizure activity or syncope no blurred vision positive slight dizziness with normal balance and gait still have slight weakness in the right side compared to the left side. BEHAVIORAL/PSYCH: Negative. ENDOCRINE: Negative. PHYSICAL EXAMINATION: General Appearance: Alert, cooperative, no distress, appears stated age. Neck HEENT: Supple, no lymphadenopathy, no thyroid enlargement, no carotid bruits. Lungs: Clear to auscultation without crackles or wheezes no rhonchi, no deformity. Chest Wall: Chest wall normal expansion with deep inspiration no tenderness and no deformity was found on exam, no costochondral pain or discomfort. Heart: Regular rate and rhythm, S1, S2 normal, no murmur, rub or gallop. Back: Symmetric, no curvature, ROM normal, no CVA tenderness. Abdomen: Soft, non-tender, bowel sounds active all four quadrants, no masses, no organomegaly. Extremities: Extremities normal, atraumatic, no cyanosis or edema. Pulses: 2+ and symmetric. Skin: Skin color, texture, tugor normal, no rashes or lesions. Neurologic: Alert oriented x3 cranial nerves II through XII intact, slight weakness in the right side especially the upper extremity compared to the lower extremity, slight abnormal balance and gait currently she is not steady on her feet. ASSESSMENT AND PLAN: _TIA/CVA: Symptoms lasted for over an hour had reversed still have slight residual at this point, patient was hospitalized started on Plavix higher dose of statin along with baby aspirin will consult neurology probably going for an MRI of the brain. _Atherosclerotic heart disease: Postangioplasty and stent placement years ago has not had any further cardiac testing in long time Please remain on metoprolol and Vytorin duloxetine ARB early. Blood pressure has been high will probably add enalapril IV and furthermore we will try probably keep patient on oral lisinopril. _Hypertension: Become slightly with urgent and not controlled add enalapril 2.5 mg IV every 6 hours for systolic above 160 also will add hydralazine 25 mg 4 times a day for the same parameters for now. _Hyperlipidemia: Currently on Vytorin 10/20 mg with target for LDL below 70 might go higher on the simvastatin part of the Vytorin. _Chronic neuropathy: With major side effect and complication related to pregabalin and gabapentin patient remain off currently could not tolerate duloxetine or Elavil. _Chronic pelvic pain syndrome: With worsening interstitial cystitis along with worsening spasm and pelvic pain repeatedly. Has been on physical therapy previously still on baclofen Tylenol and occasional bladder control medication. Mild polycythemia: Not a clear etiology at this point repeat CBC tomorrow if still elevated further arrangement for sleep study will be done. Mild hyperkalemia: Not clear whether this is hemolyzed or not repeat again CMP if needed will treat with potassium. Hyperglycemia: Blood sugar 157, patient never been diagnosed with diabetes A1c returned at lab in the morning and will continue Accu-Chek while she is in the hospital. Hospital course: Patient ended up seeing neurology agree with the current plan, carotid ultrasound and CT of the neck did not show any carotid stenosis, echocardiogram showed good ejection fraction with no sign of thrombus or clot. conveyor monitor failed to show any A-fib. Patient ended up going for an MRI of the brain did not show any major abnormality or finding. Agreed to send patient home to complete any further workup as an outpatient from here on. Time spent on patient discharge was over 35 minutes. Patient Condition at Discharge: Fair Plan - Discharge Summary Discharge Rx Participant: No New Discharge Prescriptions: New hydrALAZINE HCL [Apresoline] 25 mg PO QID PRN #60 tab PRN Reason: Blood Pressure - High Losartan [Cozaar] 50 mg PO DAILY #30 tab Clopidogrel [Plavix] 75 mg PO DAILY #30 tab Aspirin 81 mg PO DAILY tab Pantoprazole [Protonix] 40 mg PO AC-BRKFST #30 tab Continue Ezetimibe/Simvastatin [Vytorin 10-20 mg Tablet] 1 tab PO DAILY ALPRAZolam [Xanax] 0.5 mg PO TID PRN PRN Reason: Anxiety Metoprolol Succinate [Metoprolol Succinate ER] 25 mg PO DAILY Metoprolol Succinate [Metoprolol Succinate ER] 12.5 mg PO HS Baclofen [Lioresal] 5 mg PO TID PRN PRN Reason: Muscle Pain Discharge Medication List Ezetimibe/Simvastatin [Vytorin 10-20 mg Tablet] 1 tab PO DAILY 01/28/15 [History] ALPRAZolam [Xanax] 0.5 mg PO TID PRN 09/10/23 [History] Baclofen [Lioresal] 5 mg PO TID PRN 09/10/23 [History] Metoprolol Succinate [Metoprolol Succinate ER] 12.5 mg PO HS 09/10/23 [History] Metoprolol Succinate [Metoprolol Succinate ER] 25 mg PO DAILY 09/10/23 [History] Aspirin 81 mg PO DAILY tab 09/11/23 [Rx] Clopidogrel [Plavix] 75 mg PO DAILY #30 tab 09/11/23 [Rx] Losartan [Cozaar] 50 mg PO DAILY #30 tab 09/11/23 [Rx] Pantoprazole [Protonix] 40 mg PO AC-BRKFST #30 tab 09/11/23 [Rx] hydrALAZINE HCL [Apresoline] 25 mg PO QID PRN #60 tab 09/11/23 [Rx] Follow up Appointment(s)/Referral(s): Brian Taylor MD [Primary Care Provider] - 1-2 days Patient Instructions/Handouts: Transient Ischemic Attack (DC) Discharge Disposition: HOME SELF-CARE
--- NOTE | 2023-09-13 13:23 | CDI ---
Documentation Clarification Form Date: 09/13/2023 01:11:59 PM From: Anahy López Admit Date: 09/10/2023 05:35:00 PM Patient Name: Diana Leonardo Visit Number: [id number] Discharge Date: 09/11/2023 06:56:00 PM ATTENTION: The Clinical Documentation Specialists (CDI) and [facility] Coding Staff appreciate your assistance in clarifying documentation. Please respond to the clarification below the line at the bottom and electronically sign. The CDI & [facility] Coding staff will review the response and follow-up if needed. Please note: Queries are made part of the Legal Health Record. If you have any questions, please contact the author of this message via ITS. Dr. Brian Taylor, TIA/CVA is documented in the DS.. Additional clarification regarding the etiology of the TIA/CVA is requested. Patient history/risk factors: HTN, CAD, HLD, hx of prior TIA Clinical indicators: She developed yesterday to have severe expressionaphasiaand able to express herself and using Sald word at this time andstutteringquite a bit. CT head: No evidence ofintracranialmass, acute/subacuteinfarct, orabnormal enhancement. Carotid US: Atheroscleroticdisease is present, with less than 50% diameterstenosisin the proximal left ICA. Echo: LVEF 55-60%, mild concentric LVH.No obviousregional wall motionabnormality Treatment: CT brain, carotid US, echo, ASA, Plavix Consult: Probabletransient cerebral ischemia, manifesting with transient fluent expressiveaphasia, that lasted for about 10 to 15 minutes and went away.CurrentNIH stroke scaleis 0 Please clarify the etiology of the TIA, if known: [ ] Carotid Stenosis causing TIA [xx ] TIA [ ] Ischemic Stroke [ ] Other (please specify): [ ] Etiology unknown or Unable to determine MTDD
== END 2023-09-11 18:56 | disposition home or self-care (01) | DRG 69 ==
LOC: EC 15:20 → 3SCARD 17:35
PROVIDERS: ADMIT Internal Medicine Geriatric Medicine; ATTEND Internal Medicine Geriatric Medicine
DX: G45.9 Transient cerebral ischemic attack, unspecified (principal); R47.01 Aphasia; N30.10 Interstitial cystitis (chronic) without hematuria; I10 Essential (primary) hypertension; I65.22 Occlusion and stenosis of left carotid artery; F32.A Depression, unspecified; D75.1 Secondary polycythemia; I25.10 Atherosclerotic heart disease of native coronary artery without angina pectoris; E78.5 Hyperlipidemia, unspecified; E87.5 Hyperkalemia; F43.10 Post-traumatic stress disorder, unspecified; G62.9 Polyneuropathy, unspecified; R73.9 Hyperglycemia, unspecified; G89.4 Chronic pain syndrome; I83.90 Asymptomatic varicose veins of unspecified lower extremity; M19.90 Unspecified osteoarthritis, unspecified site; R10.2 Pelvic and perineal pain; M54.2 Cervicalgia; I44.0 Atrioventricular block, first degree; I49.1 Atrial premature depolarization; R47.82 Fluency disorder in conditions classified elsewhere; Z79.899 Other long term (current) drug therapy; Z86.73 Personal history of transient ischemic attack (TIA), and cerebral infarction without residual deficits; Z95.5 Presence of coronary angioplasty implant and graft; Z88.5 Allergy status to narcotic agent; Z88.8 Allergy status to other drugs, medicaments and biological substances
CPT/HCPCS: 36415; 70450; 70496; 70498; 70553; 71046; 80053; 82550; 83036; 84484; 85025; 85610; 85730; 93005; 93306; 99291

== ENCOUNTER → 2023-12-10 | Outpatient (CLI) | payer MEDICARE ==
[2023-12-11 05:29] LABS: Carbon Dioxide 22.9 mmol/L (21.6-31.8); Chloride 98 mmol/L (96-109); Potassium 4.1 mmol/L (3.5-5.5); Sodium 136 mmol/L (135-145)
[2023-12-11 05:53] LABS: Basophils # (A) 0.03 X 10*3/uL (0.00-0.10); Basophils % (A) 0.4 %; Eosinophils # (A) 0.05 X 10*3/uL (0.04-0.35); Eosinophils % (A) 0.7 %; HCT 42.8 % (37.2-46.3); HGB 13.8 g/dL (12.0-15.0); Lymphocytes # (A) 1.44 X 10*3/uL (0.90-5.00); Lymphocytes % (A) 19.9 %; MCH 30.1 pg (27.0-32.0); MCHC 32.2 g/dL (32.0-37.0); MCV 93.4 FL (80.0-97.0); Mean Platelet Volume 9.5 FL (9.5-12.2); Monocytes % (A) 5.5 %; NRBC Per 100 WBC 0 X 10*3/uL (0.00-0.01); Neutrophils # (A) 5.29 X 10*3/uL (1.80-7.70); Neutrophils % (A) 73.2 %; Platelet Count 241 X 10*3/uL (140-440); RBC 4.58 X 10*6/uL (4.10-5.20); WBC 7.23 X 10*3/uL (4.50-10.00)
== END | disposition home or self-care (01) ==
LOC: LABPAT 14:12
PROVIDERS: ATTEND Internal Medicine
DX: Z01.812 Encounter for preprocedural laboratory examination (principal); R06.02 Shortness of breath
CPT/HCPCS: 36415; 80051; 82565; 84520; 85025

== ENCOUNTER 2023-12-18 08:36 | Day surgery (SDC) | payer MEDICARE ==
[~2023-12-18 08:36] MED LIST changes: +ALPRAZolam 0.25 MG TAB PO PRN; +ASPIRIN 325 MG TAB PO STA; +HEPARIN SODIUM,PORCINE (1 ML) 2,500 UNIT in SODIUM CHLORIDE 0.9% 250 ML IRRIGATION PRN; +HEPARIN SODIUM,PORCINE 10,000 UNIT in SODIUM CHLORIDE 0.9% 1,000 ML IRRIGATION PRN; -IODINE/POTASS IOD (LUGOLS) BOTTLE TOPICAL ONE; +NITROGLYCERIN SL TABS 0.4 MG TAB SUBLINGUAL PRN
[2023-12-18] MEDS: IV FLUID CONTINUATION 1,000 ML IV ONE (08:55)
[2023-12-18] MEDS: SODIUM CHLORIDE 0.9% 1,000 ML in EMPTY BAG 1 BAG IV SCH (09:03)
[2023-12-18 09:50] VITALS: RESP 16; TEMP 97.9
[2023-12-18] MEDS: fentaNYL (PF) 50 MCG/ML 2 ML AMP IVP ONE (10:05)
[2023-12-18] MEDS: MIDAZOLAM 2 MG/2 ML VIAL IVP ONE (10:05)
[2023-12-18] MEDS: LIDOCAINE 2% (PF) 20 MG/ML 5 ML VIAL SQ ONE (10:08)
[2023-12-18] MEDS: HEPARIN SODIUM 1,000 UN/ML (10ML VL) IV ONE (10:10)
[2023-12-18] MEDS: CLOPIDOGREL 75 MG TAB PO ONE (10:26)
[2023-12-18] MEDS: NITROGLYCERIN 1000MCG/10ML SYRINGE INTRACORON ONE (10:30)
--- NOTE | 2023-12-18 10:59 | P.PRCINT ---
Percutaneous Coronary Int. - Percutaneous Coronary Intervention Percutaneous Coronary Intervention: PROCEDURES PERFORMED: Left heart catheterization, bilateral coronary angiography, ultrasound guided arterial access, PCI proximal circumflex with a 3.0 x 18mm Xience JENNA, post dilated with a 3.25mm NC balloon INDICATION: Abnormal stress test, NYHA class III angina with dyspnea as anginal equivalent CONSENT:I have discussed the risks, benefits and alternative therapies for the above-mentioned procedure and for both sedation/analgesia as well as necessary blood product administration, if indicated, as they pertain to this patient. The patient has indicated understanding and acceptance of the risks and procedures discussed. PROCEDURE: After the risks, benefits and alternatives of the above mentioned procedure explained in detail with the patient, informed consent was obtained. Patient was taken to the catheterization lab and prepped and draped in usual fashion. Ultrasound guidance was used to assess for arterial access. 1% lidocaine was used to anesthetize the right radial artery. A 6-Gabonese sheath w as placed in the right radial artery using modified Seldinger technique and ultrasound guidance. Left coronary angiography was performed with a 5-Gabonese JL 3.5 catheter and right coronary angiography was performed with a 6-Gabonese AL1 catheter in various views. A 5-Gabonese FR5 catheter was inserted into the left ventricle and pressure measurements were obtained. The decision was made to perform PCI of the circumflex. A 6-Gabonese CLS 3.5 guide was used to engage the left main. Heparin was given for ACT greater than 250. A 0.014 BMW wire was advanced into the distal circumflex. Predilation was performed with a 2.5 mm balloon. Intravascular ultrasound showed reference vessel 3.0-3.25 with out much calcification and therefore stenting was recommended. A 3.0 x 18 mm Xience JENNA was placed in the proximal circumflex. IVUS was performed with some mild underexpansion of the stent proximally with excellent sizing distally. The proximal portion of the stent was postdilated with a 3.25 mm noncompliant balloon. Final angiograms were performed. Pre- intervention there is 99% stenosis and RAMANA-3 flow and postintervention there is less than 10% stenosis with RAMANA 3 flow. The right radial sheath was removed and a TR band was placed with hemostasis achieved. The patient tolerated the procedure well. Patient was transported back to the post catheterization holding area in stable condition. Conscious Sedation: Patient was monitored under the direct supervision of myself for conscious sedation using Versed and fentanyl for a total duration of 43 minutes HEMODYNAMICS: Aorta: 164/49 LV: 162/4, LVEDP 14 SELECTIVE CORONARY ARTERIOGRAPHY: LEFT MAIN: The left main is a large caliber vessel which bifurcates into the LAD and circumflex. There is no significant stenosis. LEFT ANTERIOR DESCENDING CORONARY ARTERY: LAD is a large caliber vessel which wraps around to the apex. There are mild luminal irregularities with proximal LAD 20-30% stenosis.. LEFT CIRCUMFLEX CORONARY ARTERY: Left circumflex is a moderate caliber vessel with A proximal focal 99% stenosis and otherwise mild luminal irregularities. RIGHT CORONARY ARTERY: The right coronary artery is a large caliber vessel which gives off a PDA and PLV branch and is the dominant vessel. There is A long proximal to mid RCA stent with 30-40% in-stent stenosis and otherwise mild luminal irregularities of the RCA. There are right to left collaterals to the circumflex. FINAL IMPRESSION: 1. CAD as described above including LAD 20-30% stenosis, proximal circumflex 99% stenosis, RCA 30-40% in-stent stenosis 2. Normal left sided filling pressures 3. S/p PCI proximal circumflex with a 3.0 x 18mm Xience JENNA, post dilated with a 3.25mm NC balloon PLAN: 1. Aggressive risk factor modification per most recent ACC/AHA guidelines. 2. Continue anticoagulation with Eliquis and Plavix for 6 months.
[2023-12-18] MEDS: IOPAMIDOL-370 200ML BTL INJ ONE (11:00)
[2023-12-18] MEDS ORDERED: BACLOFEN 10 MG TAB PO PRN (11:03)
[2023-12-18] MEDS ORDERED: MAG HYDROX/AL HYDROX/SIMETH 30 ML CUP PO PRN (11:07)
[2023-12-18] MEDS ORDERED: ZOLPIDEM 5 MG TAB PO PRN (11:07)
[2023-12-18] MEDS ORDERED: RX INFO: IV CONTRAST WAS GIVEN 1 EACH MISC MISCELLANE PRN (11:07)
[2023-12-18] MEDS ORDERED: ATROPINE SULFATE 0.1 MG/ML 10ML SYRINGE IV PRN (11:07)
[2023-12-18] MEDS ORDERED: SODIUM CHLORIDE 0.9% 1,000 ML in EMPTY BAG 1 BAG IV SCH (11:15)
[2023-12-18] MEDS: ALPRAZolam 0.5 MG TAB PO PRN (13:49)
[2023-12-18 17:49] VITALS: BP 158/72; PULSE 56
[2023-12-18] MEDS ORDERED: TELMISARTAN 40 MG PO SCH (21:00)
[2023-12-18] MEDS ORDERED: MONTELUKAST 10 MG TAB PO SCH (21:00)
[2023-12-18] MEDS ORDERED: ESCITALOPRAM 5 MG TAB PO SCH (21:00)
[2023-12-18] MEDS ORDERED: METOPROLOL SUCCINATE (ER) 25 MG TAB.ER.24H PO SCH (21:00)
[2023-12-18] MEDS ORDERED: APIXABAN 5 MG TAB PO SCH (21:00)
[2023-12-18] MEDS ORDERED: amLODIPine 5 MG TAB PO SCH (21:00)
[2023-12-19] MEDS ORDERED: PANTOPRAZOLE 40 MG TABLET PO SCH (07:30)
[2023-12-19] MEDS ORDERED: ATORVASTATIN 10 MG TAB PO SCH (09:00)
[2023-12-19] MEDS ORDERED: EZETIMIBE 10 MG TAB PO SCH (09:00)
[2023-12-19] MEDS ORDERED: CLOPIDOGREL 75 MG TAB PO SCH (09:00)
== END 2023-12-18 16:05 | disposition home or self-care (01) ==
LOC: CATHCVL 08:36
PROVIDERS: ATTEND Internal Medicine
DX: I25.118 Atherosclerotic heart disease of native coronary artery with other forms of angina pectoris (principal); Z79.01 Long term (current) use of anticoagulants; Z79.02 Long term (current) use of antithrombotics/antiplatelets; Z95.5 Presence of coronary angioplasty implant and graft
CPT/HCPCS: 92978; 93458; 76937; 99152; 99153 ×2; C9600; C1769 ×2; C1887; C1894; C1725 ×2; C1753; C1874; J2250; J3010; J1644; J2001; Q9967; J2305

== ENCOUNTER 2024-05-06 10:43 | Emergency (ER) | payer MEDICARE ==
[2024-05-06] MEDS: METOPROLOL TARTRATE 5 MG/5 ML VIAL IVP STA (11:33)
[2024-05-06 11:36] LABS: Basophils % (A) 0 %; Eosinophils # (A) 0.1 k/uL (0-0.7); Eosinophils % (A) 1 %; HCT 42.8 % (34.0-46.0); HGB 14.3 gm/dL (11.4-16.0); Lymphocytes # (A) 1.2 k/uL (1.0-4.8); Lymphocytes % (A) 16 %; MCH 30.9 pg (25.0-35.0); MCHC 33.4 g/dL (31.0-37.0); MCV 92.5 fL (80.0-100.0); Monocytes # (A) 0.6 k/uL (0-1.0); Monocytes % (A) 7 %; Neutrophils # (A) 5.5 k/uL (1.3-7.7); Neutrophils % (A) 73 %; Platelet Count 274 k/uL (150-450); RBC 4.63 m/uL (3.80-5.40); RDW 13.1 % (11.5-15.5); WBC 7.6 k/uL (3.8-10.6)
[2024-05-06 11:46] LABS: ALT 18 U/L (4-34); African American GFR (CKD) >90 (>60 ml/min/1.73 sqM); Albumin 4.1 g/dL (3.5-5.0); Anion Gap 6 mmol/L; Blood Urea Nitrogen 12 mg/dL (7-17); Calcium 9.2 mg/dL (8.4-10.2); Carbon Dioxide 28 mmol/L (22-30); Chloride 102 mmol/L (98-107); Glucose 122 mg/dL (74-99); Non-African American GFR(CKD) 80 (>60 ml/min/1.73 sqM); Sodium 136 mmol/L (137-145); Total Bilirubin 1.1 mg/dL (0.2-1.3); Total Protein 6.4 g/dL (6.3-8.2)
[2024-05-06 11:51] VITALS: RESP 17
[2024-05-06 12:01] LABS: AST 32 U/L (14-36); Alkaline Phosphatase 49 U/L (38-126); Potassium 4.3 mmol/L (3.5-5.1)
--- NOTE | 2024-05-06 12:02 | ED ---
General Adult HPI - General Chief complaint: Fall Stated complaint: weakness/dizzy Time Seen by Provider: 05/06/24 10:55 Source: patient, EMS, RN notes reviewed Mode of arrival: EMS Limitations: no limitations - History of Present Illness Initial comments: 79-year-old female presents emergency department with chief complaint of fall. Patient states that she was in the shower leaned over to grab her air conditioner when she became dizzy and fell over. She states she fell over onto her buttocks she does not believe that she struck her head but is on Eliquis for atrial fibrillation. Patient states she did take her medications this morning includes Plavix and Eliquis. She denies any significant hip pain she is able to ambulate. She states she overall feels weak but is not unusual for her. She denies any chest pain or shortness of breath denies any other complaints. - Related Data Home Medications Medication Instructions Recorded Confirmed Ezetimibe/Simvastatin [Vytorin 1 tab PO DAILY 01/28/15 12/18/23 10-20 mg Tablet] ALPRAZolam [Xanax] 0.5 mg PO TID PRN 09/10/23 12/18/23 Baclofen [Lioresal] 5 mg PO TID PRN 09/10/23 12/13/23 Metoprolol Succinate [Metoprolol 25 mg PO HS 09/10/23 12/18/23 Succinate ER] Apixaban [Eliquis] 5 mg PO BID 12/13/23 12/18/23 Escitalopram [Lexapro] 5 mg PO HS 12/13/23 12/18/23 Montelukast [Singulair] 10 mg PO HS 12/13/23 12/18/23 Multivitamins, Thera [Multivitamin 1 tab PO DAILY 12/13/23 12/18/23 (formulary)] Telmisartan 40 mg PO HS 12/13/23 12/18/23 amLODIPine [Norvasc] 5 mg PO HS 12/13/23 12/18/23 Aspirin 81 mg PO DIRECTED PRN 12/18/23 12/18/23 Previous Rx's Medication Instructions Recorded Pantoprazole [Protonix] 40 mg PO AC-BRKFST #30 tab 09/11/23 Clopidogrel [Plavix] 75 mg PO DAILY #90 tab 12/18/23 Allergies Allergy/AdvReac Type Severity Reaction Status Date / Time hydromorphone HCl AdvReac Confusion Verified 12/13/23 13:10 [From Dilaudid] senna [From Senokot] AdvReac abdominal Verified 12/13/23 13:10 cramping sennosides [From Senokot] AdvReac abdominal Verified 12/13/23 13:10 cramping Review of Systems ROS Statement: Those systems with pertinent positive or pertinent negative responses have been documented in the HPI. ROS Other: All systems not noted in ROS Statement are negative. Past Medical History Past Medical History: Coronary Artery Disease (CAD), Hypertension, Osteoarthritis (OA) Additional Past Medical History / Comment(s): varicose veins,chronic neck pain, neuropathy, History of Any Multi-Drug Resistant Organisms: None Reported Past Surgical History: Cholecystectomy, Heart Catheterization With Stent Additional Past Surgical History / Comment(s): heat stents x 4 Past Anesthesia/Blood Transfusion Reactions: No Reported Reaction Date of Last Stent Placement:: 2002 Past Psychological History: Anxiety Smoking Status: Never smoker - Past Family History Mother Family Medical History: Cancer, Myocardial Infarction ([place]) Additional Family Medical History / Comment(s): colon at age 86 Father Additional Family Medical History / Comment(s): heart problems General Exam Limitations: no limitations General appearance: alert, in no apparent distress Head exam: Present: atraumatic, normocephalic, normal inspection Eye exam: Present: normal appearance, PERRL, EOMI. Absent: scleral icterus, conjunctival injection, periorbital swelling ENT exam: Present: normal exam, mucous membranes moist Neck exam: Present: normal inspection, full ROM. Absent: tenderness, meningismus, lymphadenopathy Respiratory exam: Present: normal lung sounds bilaterally. Absent: respiratory distress, wheezes, rales, rhonchi, stridor Cardiovascular Exam: Present: irregular rhythm, normal heart sounds. Absent: regular rate, normal rhythm, systolic murmur, diastolic murmur, rubs, gallop, clicks GI/Abdominal exam: Present: soft, normal bowel sounds. Absent: distended, tenderness, guarding, rebound, rigid Extremities exam: Present: normal inspection, full ROM, normal capillary refill. Absent: tenderness, pedal edema, joint swelling, calf tenderness Neurological exam: Present: alert, oriented X3, CN II-XII intact, reflexes normal. Absent: motor sensory deficit Course Vital Signs 05/06/24 05/06/24 05/06/24 10:45 10:56 11:48 Temperature 97.9 F Pulse Rate 71 90 Pulse Rate [ 86 Bilateral Radial] Respiratory 18 17 Rate Blood Pressure 150/86 138/72 O2 Sat by Pulse 100 98 Oximetry 05/06/24 13:51 Temperature 98.1 F Pulse Rate 64 Pulse Rate [ Bilateral Radial] Respiratory 17 Rate Blood Pressure 151/67 O2 Sat by Pulse 98 Oximetry EKG Findings - EKG Comments: EKG Findings:: EKG performed at 11: 05 A-fib with a rate of 99 QRS 92 QT/QTc 354/410 - EKG Results: EKG: interpreted by ANATOLI[facility] Medical Decision Making - Medical Decision Making Was pt. sent in by a medical professional or institution (, PA, B2B SALES MANAGER, urgent care, hospital, or [facility]...) When possible be specific @ -No Did you speak to anyone other than the patient for history (EMS, parent, family, police, friend...)? What history was obtained from this source @ -No Did you review nursing and triage notes (agree or disagree)? Why? @ -I reviewed and agree with nursing and triage notes Were old charts reviewed (outside hosp., previous admission, EMS record, old EKG, old radiological studies, urgent care reports/EKG's, [facility] records)? Report findings @ -No old charts were reviewed Differential Diagnosis (chest pain, altered mental status, abdominal pain women, abdominal pain men, vaginal bleeding, weakness, fever, dyspnea, syncope, headache, dizziness, GI bleed, back pain, seizure, CVA, palpatations, mental health, musculoskeletal)? @ -Differential Syncope: Valvular disease, hypertrophic cardiomyopathy, pulmonary embolism, tamponade, ta chycardia, bradycardia, [place], hypovolemia, hemorrhage, dissection, anemia, intracranial hemorrhage, seizure, hypoglycemia, carbon monoxide poisoning, this is not meant to be an all-inclusive list. Differential Dizziness: Benign paroxysmal positional Vertigo, Meniere's disease, otitis media, acoustic neuroma, vertebrobasilar insufficiency, cerebellar stroke, encephalitis, hypovolemic, arrhythmia, coronary artery syndrome, anemia, this is not meant to be an all-inclusive list EKG interpreted by me (3pts min.). @ -As above X-rays interpreted by me (1pt min.). @ -X-ray pelvis shows no acute fracture or abnormality CT interpreted by me (1pt min.). @ -CT brain, C-spine showing no acute intracranial mass, mass effect or cervical fracture U/S interpreted by me (1pt. min.). @ -None done What testing was considered but not performed or refused? (CT, X-rays, U/S, labs)? Why? @ -None What meds were considered but not given or refused? Why? @ -None Did you discuss the management of the patient with other professionals (professionals i.e. , PA, B2B SALES MANAGER, lab, RT, psych nurse, social studies department chair, lease picker, te acher, founder chairman and chief creative officer, window caser)? Give summary @ -No Was smoking cessation discussed for >3mins.? @ -No Was critical care preformed (if so, how long)? @ -No Were there social determinants of health that impacted care today? How? (Homelessness, low income, unemployed, alcoholism, drug addiction, transportation, low edu. Level, literacy, decrease access to med. care, senior care, rehab)? @ -No Was there de-escalation of care discussed even if they declined (Discuss DNR or withdrawal of care, Hospice)? DNR status @ -No What co-morbidities impacted this encounter? (DM, HTN, Smoking, COPD, CAD, Cancer, CVA, ARF, Chemo, Hep., AIDS, mental health diagnosis, sleep apnea, morbid obesity)? @ -None Was patient admitted / discharged? Hospital course, mention meds given and route, prescriptions, significant lab abnormalities, going to OR and other pertinent info. @ -Discharge patient feels great improved after metoprolol. Patient did have A- fib with a history anticoagulated. Imaging was negative. Patient is in normal sinus and will be discharged in stable condition.] Undiagnosed new problem with uncertain prognosis? @ -No Drug Therapy requiring intensive monitoring for toxicity (Heparin, Nitro, Insulin, Cardizem)? @ -No Were any procedures done? @ -No Diagnosis/symptom? @ -A-fib, fall, dizziness Acute, or Chronic, or Acute on Chronic? @ -Acute Uncomplicated (without systemic symptoms) or Complicated (systemic symptoms)? @ -complicated Side effects of treatment? @ -No Exacerbation, Progression, or Severe Exacerbation? @ -No Poses a threat to life or bodily function? How? (Chest pain, [place], [place], pneumonia, PE, COPD, DKA, ARF, appy, cholecystitis, CVA, Diverticulitis, Homicidal, Suicidal, threat to staff... and all critical care pts) @ -No - Lab Data Result diagrams: 05/06/24 11:24 05/06/24 11:24 Lab Results 05/06/24 05/06/24 Range/Units 11:24 11:24 WBC 7.6 (3.8-10.6) k/uL RBC 4.63 (3.80-5.40) m/uL Hgb 14.3 (11.4-16.0) gm/dL Hct 42.8 (34.0-46.0) % MCV 92.5 (80.0-100.0) fL MCH 30.9 (25.0-35.0) pg MCHC 33.4 (31.0-37.0) g/dL RDW 13.1 (11.5-15.5) % Plt Count 274 (150-450) k/uL MPV 8.0 Neutrophils % 73 % Lymphocytes % 16 % Monocytes % 7 % Eosinophils % 1 % Basophils % 0 % Neutrophils # 5.5 (1.3-7.7) k/uL Lymphocytes # 1.2 (1.0-4.8) k/uL Monocytes # 0.6 (0-1.0) k/uL Eosinophils # 0.1 (0-0.7) k/uL Basophils # 0.0 (0-0.2) k/uL Sodium 136 L (137-145) mmol/L Potassium 4.3 (3.5-5.1) mmol/L Chloride 102 (98-107) mmol/L Carbon Dioxide 28 (22-30) mmol/L Anion Gap 6 mmol/L BUN 12 (7-17) mg/dL Creatinine 0.72 (0.52-1.04) mg/dL Est GFR (CKD-EPI)AfAm >90 (>60 ml/min/1.73 sqM) Est GFR (CKD-EPI)NonAf 80 (>60 ml/min/1.73 sqM) Glucose 122 H (74-99) mg/dL Calcium 9.2 (8.4-10.2) mg/dL Total Bilirubin 1.1 (0.2-1.3) mg/dL AST 32 (14-36) U/L ALT 18 (4-34) U/L Alkaline Phosphatase 49 (38-126) U/L Total Protein 6.4 (6.3-8.2) g/dL Albumin 4.1 (3.5-5.0) g/dL Disposition Clinical Impression: Fall, Dizziness, Afib Disposition: HOME SELF-CARE Condition: Stable Instructions (If sedation given, give patient instructions): A-fib (Atrial Fibrillation) (ED) Additional Instructions: Please return to the Emergency Department if symptoms worsen or any other concerns. Is patient prescribed a controlled substance at d/c from ED?: No Referrals: Brian Taylor MD [Primary Care Provider] - 1-2 days Time of Disposition: 13:40
--- NOTE | 2024-05-06 12:19 | CT ---
EXAMINATION TYPE: CT brain cspine wo con CT DLP: 1302.6 mGycm, Automated exposure control for dose reduction was used. DATE OF EXAM: 05/06/2024 12:09 PM COMPARISON: None. CLINICAL INDICATION: Female, 79 years old with history of fall; Fall, denies head injury, denies neck pain TECHNIQUE: Brain: Multiple axial CT images of the brain were obtained without IV contrast. Cspine: Axial CT images from the skull base to the inferior aspect of T2 we obtained without intraven ous contrast. Coronal and sagittal reformatted images were also reviewed. . FINDINGS: Brain: Extra-axial spaces: No abnormal extra-axial fluid collections. Ventricular system: Dilatation in proportion to cerebral atrophy. Cerebral parenchyma: Cerebral atrophy. No acute intraparenchymal hemorrhage or mass effect. The lay -white junction is well differentiated. Scattered hypoattenuating areas are seen within the white mat ter. Cerebellum: Unremarkable. Mass effect: No evidence of midline shift. Intracranial vasculature: unremarkable Soft tissues: Normal. Calvarium/osseous structures: No depressed skull fracture. Paranasal sinuses and mastoid air cells: Clear. Visualized orbits: Orbital contents are intact. Cervical spine: Fracture: None. Osseous structures: Multilevel degenerative disc disease changes with endplate spurring and disc oste ophyte complex's. Vertebral alignment: Within normal limits. Spinal canal/Neural Foramina: No evidence of significant spinal canal narrowing. No evidence for sign ificant neural foraminal stenosis. Neck soft tissues: Prevertebral soft tissues are within normal limits. Other: The airway is patent. The lung apices are clear. Right thyroid nodule measuring 9 mm. IMPRESSION: No acute intracranial process. Nonspecific white matter changes, likely secondary to chronic small vessel ischemic disease. No evidence of cervical spine fracture. Mild multilevel degenerative disc disease. [facility], , 05/06/2024 12:16 PM
--- NOTE | 2024-05-06 13:30 | XR ---
EXAMINATION TYPE: XR pelvis AP view DATE OF EXAM: 05/06/2024 12:51 PM CLINICAL INDICATION: Female, 79 years old with history of fall; [facility] COMPARISON: None TECHNIQUE: XR pelvis AP view, examined in a single projection. FINDINGS: There is no evidence of fracture or dislocation. There is no soft tissue abnormality. No a bnormal calcifications are present. The spine appears intact. The hips appear intact. Osteophyte form ation of the superior acetabulum bilaterally with mild joint space narrowing. IMPRESSION: No acute osseous pathology. Mild degeneration changes of the hip. [facility], , 05/06/2024 1:28 PM
[2024-05-06 13:56] VITALS: BP 151/67; PULSE 64; TEMP 98.1
== END 2024-05-06 14:02 | disposition home or self-care (01) ==
LOC: EC 10:43
CPT/HCPCS: 36415; 70450; 72125; 72170; 80053; 85025; 93005; 96374; 99285